=== PATIENT | male | born 1980 | race Two or more races ===

== ENCOUNTER 2020-10-12 14:02 | Emergency (ER) | payer SELFPAY ==
[~2020-10-12] VITALS: Ht 175.3 cm; Wt 75.0 kg
[2020-10-12 14:09] VITALS: BP 107/83
--- NOTE | 2020-10-12 14:17 | NUR ---
PT TO ROOM FROM TRIAGE, CONNECTED TO MONITORS. PT C/O R-ANKLE SPRAIN, STATES HE FELL OFF A LADDER YESTERDAY. PT STATES HE ICED, MEDICATED AND PUT A COMPRESSION SOCK TO R-ANKLE YESTERDAY AND NOTHING HAS HELPED.
--- NOTE | 2020-10-12 14:28 | NUR ---
PA AT BS FOR EVAL
[2020-10-12] MEDS ORDERED: IBUPROFEN 600 MG TABLET PO ONE (14:30)
[2020-10-12] MEDS ORDERED: IBUPROFEN 600 MG TABLET ONE (14:42)
--- NOTE | 2020-10-12 14:42 | NUR ---
XRAY AT BS
--- NOTE | 2020-10-12 15:16 | NUR ---
PA AT FOR RECHECK
--- NOTE | 2020-10-12 15:24 | NUR ---
Patient given discharge instructions and RX, they have confirmed that they understand the instructions. Patient ambulatory with [facility], SPOUSE AT SIDE.
== END 2020-10-12 15:29 | disposition home or self-care (01) ==
LOC: ED 15:23
DX: S93.491A Sprain of other ligament of right ankle, initial encounter (principal); X58.XXXA Exposure to other specified factors, initial encounter; Y93.89 Activity, other specified; Y92.69 Other specified industrial and construction area as the place of occurrence of the external cause; Y99.0 Civilian activity done for income or pay
CPT/HCPCS: 99284